=== PATIENT | female | born 1985 ===

== ENCOUNTER 2019-01-09 14:13 | Emergency (ER) | payer BC, MEDICAID ==
[2019-01-09] MEDS ORDERED: Lactated Ringer's 1,000 ML IV ONE (14:24)
[2019-01-09 14:51] LABS: BASO % 0.2 % (0.0-2.0); EOS % 0.3 % (0.0-4.0); LYMPH # 0.8 K/uL (1.0-4.3); LYMPH % 4.8 % (20.0-40.0); MEAN CORPUSCULAR HEMOGLOBIN 26.1 pg (27.0-31.0); MONO # 0.8 K/uL (0.0-0.8); MONO % 4.7 % (0.0-10.0); NEUT # 14.6 K/uL (1.8-7.0); NRBC % 0.1 % (0.0-2.0); PLATELET COUNT 302 K/uL (130-400); RBC 3.77 Mil/uL (3.80-5.20); RED CELL DISTRIBUTION WIDTH 14.3 % (11.5-14.5)
[2019-01-09 14:57] LABS: HEMOGLOBIN 9.8 g/dL (11.0-16.0); MEAN CELL VOLUME 81.5 fL (81.0-99.0); WHITE BLOOD COUNT 16.2 K/uL (4.8-10.8)
[2019-01-09 15:03] LABS: SQUAMOUS EPITHIAL 11 /hpf (0-5); URINE BACTERIA RARE (<OCC); URINE BILIRUBIN NEGATIVE (NEGATIVE); URINE BLOOD 1+ (NEGATIVE); URINE CLARITY Hazy (Clear); URINE COLOR Yellow (YELLOW); URINE GLUCOSE (UA) NORMAL (Normal); URINE LEUKOCYTE ESTERASE TRACE Leu/uL (Negative); URINE PROTEIN NEGATIVE (NEGATIVE); URINE UROBILINOGEN NORMAL mg/dL (0.2-1.0)
[2019-01-09 15:16] LABS: BANDS 5 % (0-2); LYMPHOCYTE 7 % (20-40); MONOCYTE 6 % (0-10); NEUTROPHIL 82 % (50-75); TOTAL CELLS COUNTED 100
[2019-01-09 15:17] LABS: PLATELET ESTIMATE NORMAL (NORMAL)
[2019-01-09 15:33] LABS: ALB/GLOB RATIO 1.1 (1.0-2.1); AMYLASE 86 U/L (30-110); BLOOD UREA NITROGEN 10 mg/dL (7-17); CALCIUM 8.7 mg/dl (8.6-10.4); GFR NON-AFRICAN AMERICAN > 60; LIPASE 52 U/L (23-300)
[2019-01-09 15:36] LABS: ALT/SGPT 10 U/L (9-52); AST/SGOT 36 U/L (14-36)
--- NOTE | 2019-01-09 18:15 | OBHP ---
Datetime: 01/09/2019 15:44 IP Adm Impression: , intrauterine IP Chief Complaint Other: Vomiting, epigastric discomfort IP Admit Plan: Observation/Evaluation; Discharge home Admit Comment, IP Provider: Patient is a 33 year old at 35w4d dated by first trimester US wi th LISA 02/09/19 who presents to labor and delivery for vomiting that started at approximately 4am today . Patient states that she had 5 episodes of vomiting since and last episode was 30 minutes prior to a rrival (1:15pm). Patient also reports having two episodes of loose stools and epigastric discomfort. Epigastric discomfort is cramping in nature, intermittent and non-radiating. Rates the pain a 5-6/10 on pain scale. During the she has been experiencing lower abdominal "stretching" that is co nstant in nature. She denies any changes in her diet, sick contacts or recent travel. She endorses +F M, denies CTX, VB, LOF. Patient is a private of Dr Castillo. Issues: Previous C/S x 2 Advanced Maternal Age OB Hx: 1. 2006 SAB with D+C 2. 2012 PLTCD 2/2 NRFHT at term, male infant, 7lbs, no complications 3. 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 D+C Social History: Denies alcohol, tobacco, drug use; not currently employed Family History: Mother - asthma, lupus age 54; Father - unknown PE: see above A/P: Patient is a 33 year old at 35w4d who presents with intractable vomiting and epigastr ic discomfort. tachycardia initially noted on tracing with irregular contractions. -Not in labor -IV fluid hydration with 1L LR bolus, D5LR bolus to follow -Labs: CBC, CMP, UA, lipase, rapid influenza -Zofran as needed for nausea -Will continue to observe -Discussed plan with Dr Rene OB addendum: Labs reviewed. States that she is feeling better at this time. Contractions have spac ed out and tachycardia resolved. Patient advised to increase PO hydration. Patient also instruc lexie to eat foods rich in iron for anemia. Patient to call Dr Castillo tomorrow morning for a follow up a ppointment within the next few days. labor precautions given. All questions and concerns were addressed. Bhavna Wright DO PGY-2 Attending Note: patient seen, examined and evaluated by me with the Resident. I agree with the abo ve as documented. - Dr. Castillo was made aware FHR - Baseline A Provider: 165 Contraction Comments Provider: irregular Comments, ACOG Physical Exam: Vitals signs stable Gen: AAOX3 Abd: Soft, gravid, no lower abdominal, suprapubic, epigastric tenderness on palpation, fundal heig ht 33cm Back: No CVA tenderness bilaterally Ext: No clubbing, cyanosis, edema SVE: closed/thick/high/posterior IP Hx Assessment: No records available at this time EGA AdmitDate IP: 35.4 Vital Signs Provider: Reviewed IP Chief Complaint: Other NICHD Variability Prov Fetus A: Moderate 6-25bpm NICHD Accel Fetus A IP Provider: [id number] NICHD Decel Fetus A IP Provider: None Dilatation, Provider: closed Effacement, Provider: thick Station, Provider: high
[2019-01-09 21:16] VITALS: BP 104/79; PULSE 112; RESP 20; TEMP 100
== END 2019-01-09 17:15 | disposition home or self-care (01) ==
LOC: C.EROB 14:13
DX: O21.9 Vomiting of pregnancy, unspecified (principal); Z3A.35 35 weeks gestation of pregnancy; O26.893 Other specified pregnancy related conditions, third trimester; R10.13 Epigastric pain
CPT/HCPCS: 80053; 81001; 82150; 83690; 85025; 87804; 96374; 99284; J2405; J7120

== ENCOUNTER 2019-01-26 09:00 | Inpatient (IN) | payer MEDICAID ==
[2019-01-26 09:39] VITALS: BMI 31.7
[2019-01-26] MEDS ORDERED: Lactated Ringer's 1,000 ML IV ONE ×2 (09:39→13:10)
[2019-01-26] MEDS ORDERED: cefOXitin IV 2 gm in Dextrose 2 GM/50 ML BAG IVPB ONE (09:53)
[2019-01-26] MEDS ORDERED: Sodium Citrate/Citric Acid 15 ml Sol PO ONE (09:53)
[2019-01-26 09:57] LABS: BASO % 0.3 % (0.0-2.0); EOS # 0.1 K/uL (0.0-0.7); EOS % 0.6 % (0.0-4.0); LYMPH # 2.2 K/uL (1.0-4.3); LYMPH % 19.4 % (20.0-40.0); MEAN CELL VOLUME 80.6 fL (81.0-99.0); MEAN CORPUSCULAR HEMOGLOBIN 26.6 pg (27.0-31.0); MEAN PLATELET VOLUME 8.5 fL (7.2-11.7); MONO # 0.8 K/uL (0.0-0.8); MONO % 6.8 % (0.0-10.0); NEUT # 8.3 K/uL (1.8-7.0); NEUT % 72.9 % (50.0-75.0); RBC 3.4 Mil/uL (3.80-5.20); RED CELL DISTRIBUTION WIDTH 15.9 % (11.5-14.5); WHITE BLOOD COUNT 11.4 K/uL (4.8-10.8)
[2019-01-26 09:58] LABS: SQUAMOUS EPITHIAL 45 /hpf (0-5); URINE BACTERIA RARE (<OCC); URINE BILIRUBIN NEGATIVE (NEGATIVE); URINE BLOOD 1+ (NEGATIVE); URINE CLARITY Hazy (Clear); URINE COLOR Yellow (YELLOW); URINE GLUCOSE (UA) NORMAL (Normal); URINE LEUKOCYTE ESTERASE TRACE Leu/uL (Negative); URINE PROTEIN NEGATIVE (NEGATIVE)
[2019-01-26] MEDS ORDERED: Oxytocin 20 units in LR 2,000 ML IV ONE (09:59)
[2019-01-26] MEDS ORDERED: Oxytocin 10 Units/ml Inj ONE (10:00)
[2019-01-26 10:04] LABS: ALB/GLOB RATIO 1.4 (1.0-2.1); ALBUMIN 4.4 g/dL (3.5-5.0); ALT/SGPT 8 U/L (9-52); AST/SGOT 20 U/L (14-36); BLOOD UREA NITROGEN 11 mg/dL (7-17); CALCIUM 9.1 mg/dl (8.6-10.4); GFR NON-AFRICAN AMERICAN > 60
--- NOTE | 2019-01-26 11:12 | OBADHP ---
Datetime: 01/26/2019 09:33 Admit Comment, IP Provider: Patient is a 33 year old at 38w0d dated by first trimester US wh o presents to labor and delivery with c/o of contractions and was found to have cx's every 2-4 mins a nd a cervic at 1-2 cms, 60% and -2 station. Pt has a Hx of previous C/S x 2 and sill admit for repeat c/s with TL and per Dr. Hendrix. Patient states the baby has been moving a lot. She states raymundo t there were no complications with this . She denies having any vaginal bleeding/discharge, fevers, chills, shortness of breath, chest pain, abdominal pain, nausea, vomiting, diarrhea, hematuri a, or dysuria. OB Hx: 1. 2006 SAB with D+C 2. 2012 PLTCD 2/2 NRFHT at term, male infant, 7lbs, no complications 3. 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 D+C Social History: Denies alcohol, tobacco, drug use; not currently employed Family History: Mother - asthma, lupus age 54; Father - unknown PE: see above A/P: Patient is a 33 year old at 38w0d who is admitted for a repeat and tubal l igation with Dr. Hendrix today secondary to early labor with cervical change. Patient is havin g contractions and positive movements. - IVF: LR bolus - Cefoxicitin 2g IV - CBC, CMP, RPR, HIV, Type and screen, UA - Keep patient NPO Patient was seen, examined, and plan discussed with attending present, Dr. Flroes. Harinder Bazan, PGY-1 Pt seen and examined with Dr. Pizano and all of his findings and POC were fully reviewed and agree d with. Extremities - PN: Normal Abdomen - PN: Normal Back - PN: Not Done Breast - PN: Not Done Lungs - PN: Normal Heart - PN: Normal Thyroid - PN: Not Done Neurologic - PN: Normal HEENT - PN: Normal General - PN: Normal FHR - Baseline A Provider: 140 Membranes, Provider: Intact Contraction Comments Provider: 2-4 mins Comments, ACOG Physical Exam: Vitals signs stable Gen: AAOX3 Abd: Soft, gravid, no lower abdominal, suprapubic, epigastric tenderness on palpation Ext: No clubbing, cyanosis, edema Vital Signs Provider: Reviewed; Within Normal Limits IP Chief Complaint: Uterine contractions NICHD Variability Prov Fetus A: Moderate 6-25bpm NICHD Accel Fetus A IP Provider: [id number] FHR Category Provider Fetus A: Category I NICHD Decel Fetus A IP Provider: None Dilatation, Provider: 1-2 Effacement, Provider: 60 Station, Provider: -2 EGA AdmitDate IP: 38.0 IP Adm Impression: Term, intrauterine ; Intact Membranes IP Admit Plan: Admit to unit; Initiate Section protocol Datetime: 01/09/2019 15:44 IP Chief Complaint Other: Vomiting, epigastric discomfort IP Hx Assessment: No records available at this time
[2019-01-26] MEDS ORDERED: Morphine 1 mg/ml preservative-free Inj(Duramorph) ONE (11:43)
[2019-01-26] MEDS ORDERED: Phenylephrine 10 mg/ml Inj ONE (13:03)
[2019-01-26] MEDS ORDERED: cefOXitin IV 2 gm in Dextrose 2 GM/50 ML BAG IVPB SCH (14:00)
[2019-01-26] MEDS: cefOXitin IV 2 gm in Dextrose 2 GM/50 ML BAG IVPB SCH (18:17)
[2019-01-26] MEDS: Simethicone 80 mg Chewtab PO SCH ×2 (18:18→21:40)
[2019-01-26] MEDS: Oxycodone/Acetaminophen 5/325 mg Tab PO PRN (20:39)
--- NOTE | 2019-01-26 21:00 | OP ---
PROCEDURE DATE: 01/26/2019 PREOPERATIVE DIAGNOSIS: Intrauterine at 38 weeks, previous section x2, in labor, desires sterilization. POSTOPERATIVE DIAGNOSIS: Intrauterine at 38 weeks, previous section x2, in labor, desires sterilization. PROCEDURE: Lower segment section, bilateral salpingectomy. SURGEON: Brenda Hendrix MD FORESTRY TECHNICAL OFFICER: Juan Diego Sampson MD TYPE OF ANESTHESIA: Spinal. FINDINGS: A live female , Apgars 9 at 1 minute and 9 at 5 minutes with normal tubes and ovaries. COMPLICATIONS: Nil. INDICATIONS FOR THE PROCEDURE: After the risks, benefits, and alternatives of the planned procedures including but not limited to infection, hemorrhage, deep vein thrombosis, atelectasis, pneumonia, pulmonary embolism, damage to the bladder, damage to the ureter, renal insufficiency, renal failure, wound infection, wound dehiscence, incisional hernia, keloid formation, damage to large and small intestines, damage to inferior vena cava and aorta requiring extensive repair, anesthesia complications, electrolyte imbalance, possibility of , fluid overload, cerebral edema, embolism, and other complications were discussed but are not listed above have been explained to the patient and all her questions answered, informed consent was obtained. DESCRIPTION OF PROCEDURE: The patient was taken to the operating room in a stable condition and under a suitable level of spinal analgesia, she was prepped and draped in a sterile fashion after having been placed in a supine position. Risks of tubal ligation including failure of tubal ligation and ectopic were also discussed with the patient. The abdomen was entered through a Pfannenstiel type incision, carried through the subcutaneous tissues to the fascia. Fascia was opened transversely and dissected off the rectus abdominis musculature. The rectus abdominis musculature was then in the midline to remove the parietal peritoneum which was entered sharply and incised superiorly and inferiorly. The bladder peritoneum was incised in a curvilinear fashion and dissected off the lower uterine segment. The lower uterine segment was then entered through a curvilinear incision. Surgeon's fingers were inserted into the lower uterine segment to grasp the 's head which was lying in a right occipital anterior position. The head was easily delivered, nose and mouth were suctioned free of amniotic fluid and the remainder of the was delivered without any difficulty. Cord was doubly clamped and cut and the baby was handed over to the pediatricians who were in attendance. Cord blood was collected with Pitocin running. Placenta was manually removed. The endometrium was then cleaned free of remaining membranes and clots. The uterine incision was then closed in layers with the first layer being a running interlocking layer using #1 chromic and the second layer being used to imbricate the first layer. Hemostasis was good. Bladder peritoneum was then reapproximated using running suture of 2-0 chromic. Attention was then turned to the tubal ligation. Using LigaSure, the right and left fallopian tubes were both resected starting at the cornua resecting the entire mesosalpinx on both the right and left side with good hemostasis. Peritoneal cavity was then irrigated using copious amounts of saline. The saline was evacuated. The abdomen was then closed in layers with 0 chromic to the parietal peritoneum. Rectal muscles were reapproximated using interrupted sutures of 0 chromic. Fascia was reapproximated using two separate running sutures of 0 Vicryl to meet in the midline. Subcutaneous tissues were reapproximated using interrupted sutures of 0 plain and the initial skin incision was reapproximated using 4-0 Vicryl in a subcuticular fashion. Estimated blood loss for the procedure was 250 mL. Pad, needle, and instrument counts were correct x2. There were no complications. Brenda Hendrix MD
--- NOTE | 2019-01-26 22:58 | HP ---
HISTORY OF PRESENT ILLNESS: The patient is a 33-year-old female with a due date of 02/09/2019, is 38 weeks 5 days, complaining of contractions since 1 a.m. The patient has had previous section x2. The patient also desires sterilization. The patient is 4, para 2. Her course has been essentially unremarkable. CURRENT MEDICATIONS: Vitafol Ultra. PAST OBSTETRICAL HISTORY: Significant for section x2 with spontaneous in 2006. PHYSICAL EXAMINATION: VITAL SIGNS: Her blood pressure is 110/70, pulse is 72, respiratory rate is 20, and temperature is 98.8. HEENT: Head, ears, nose and throat examination is within normal. CHEST: Clear. HEART: Cardiac exam reveals normal heart sounds without any murmurs. LUNGS: Clear. BREASTS: Reveal no masses. ABDOMEN: Symphyseal fundal height is 38 cm, longitudinal lie vertex. heart tones are normal. PELVIC: Cervix is 2 cm, 50% effaced, -2 station vertex. ADMITTING DIAGNOSIS: Intrauterine at 38 weeks, in labor and desires sterilization. PLAN: The plan is to perform a lower segment section, bilateral tubal ligation. Prior to being scheduled for the surgical procedure, the patient underwent an informed consent. Discussion and education session with me in the hospital lasted for approximately 1 hour during which time I explained to her in understandable terms the following; the nature and extent of the disease process and the nature and extent of the contemplated operation. I also explained to her the risks and potential complications of the operative procedure to include but not limited to infection, hemorrhage, deep vein thrombosis, atelectasis, pneumonia, pulmonary embolism, damage to the bladder, damage to the ureter, renal insufficiency, renal failure, wound infection, wound dehiscence, incisional hernia, keloid formation, damage to the large and small intestine, damage to inferior vena cava and the aorta requiring extensive repair, anesthesia complications, electrolyte imbalance, possibility of , fluid overload, cerebral edema, embolism, and other complications that were discussed, but are not listed above. I also discussed with the patient the anticipated benefits and results of the surgery including a conservative estimate of the successful outcome. I discussed with the patient where the operation would not accomplish. I informed the patient of the possibility of an unanticipated pathology requiring a more extensive procedure including failure rates of sterilization and ectopic pregnancies. All the questions from the patient were encouraged, welcomed, and answered to her satisfaction. Brenda Hendrix MD
[2019-01-27] MEDS: cefOXitin IV 2 gm in Dextrose 2 GM/50 ML BAG IVPB SCH ×2 (01:28→09:11)
[2019-01-27 07:37] LABS: HEMOGLOBIN 9.5 g/dL (11.0-16.0); MEAN CELL VOLUME 81.1 fL (81.0-99.0); MEAN CORPUSCULAR HEMOGLOBIN 26.7 pg (27.0-31.0); MEAN PLATELET VOLUME 8.5 fL (7.2-11.7); RBC 3.54 Mil/uL (3.80-5.20); RED CELL DISTRIBUTION WIDTH 16.3 % (11.5-14.5); WHITE BLOOD COUNT 15.1 K/uL (4.8-10.8)
[2019-01-27] MEDS: Simethicone 80 mg Chewtab PO SCH ×5 (09:00→21:33)
[2019-01-27] MEDS: Enoxaparin 40 mg Syringe SC SCH (09:13)
[2019-01-27] MEDS: Prenatal Multivit/Folic Acid/Iron Tab PO SCH (09:15)
--- NOTE | 2019-01-27 17:47 | OBPPN ---
Datetime: 01/27/2019 13:00 PP Pain Prov: Within normal limits PP Nausea Prov: Denies PP Flatus Prov: Yes PP BM Prov: No PP Breasts Prov: Not Done PP Heart Prov: Normal PP Lungs Prov: Normal PP Abdomen/Uterus Prov: Normal PP Lochia Prov: Normal PP Vulva/Perineum Prov: Normal PP CVA Tenderness Prov: Normal PP Extremities Prov: Normal PP C/S Incision Prov: Normal PP Progress Prov: Not Applicable PP Comments Phys Exam Prov: Fundus firm and non-tender Incision clean and dry PP Impression Prov: Normal progression PP Plan Prov: Continue present management PP Progress Note Prov: Pt seen and examined per Dr. Castillo'a request POD # 1 S/P repeat C/S Stable and Satisfactory condition and recovery Bottlefeeding only and decline despite counseling done Advised to increase po water intake and activity Advance care IP PP Procedures: None Vital Signs Provider PP: Reviewed
[2019-01-27] MEDS: Oxycodone/Acetaminophen 5/325 mg Tab PO PRN (20:39)
[2019-01-28] MEDS: Oxycodone/Acetaminophen 5/325 mg Tab PO PRN ×3 (07:08→21:24)
--- NOTE | 2019-01-28 08:58 | OBPPN ---
Datetime: 01/28/2019 07:56 PP Pain Prov: Within normal limits PP Nausea Prov: Denies PP Flatus Prov: No PP BM Prov: No PP C/S Incision Prov: Normal PP Progress Prov: Normal PP Comments Phys Exam Prov: Incision clean, dry and intact PP Impression Prov: Normal progression PP Plan Prov: Continue present management PP Progress Note Prov: Patient seen and examined at bedside and per Dr. Castillo's request. Per nursing no acute events overnight. Patient is doing well, pain is controlled. Lochia is mild. She ambulating and tolerating diet. She denies passing flatus or having a bowel movement. Urinating without difficu lty. Breast feeding. Denies headaches, dizziness, cp, palpitations, sob, urinary symptoms. VS: 122/76 91 97.9 Gen: NAD, AAOX3 Abd: Soft, distended, +fundus firm, incision c/d/i with suture Ext: No calf tenderness Labs: 11.0>9.0/27.4<300 15.1>9.5/28.7<339 A positive Rubella immune A/P: Patient is a 33 year old at 38w0d s/p RLTCD with BTL POD#2 -Stable, afebrile -Pain control with motrin and percocet as needed -Encourage ambulation, hydration, ISS use -Encourage -Monitor for return of bowel function Suppository ordered and Nursing with notify if + results -Continue routine care -Anticipate discharge home tomorrow Plan discussed with Dr Mark Wright DO PGY-2 Pt seen and examined with Dr. Wright and agreed with all of her findings and POC. Vital Signs Provider PP: Reviewed; Within Normal Limits
[2019-01-28] MEDS: Prenatal Multivit/Folic Acid/Iron Tab PO SCH (09:07)
[2019-01-28] MEDS: Simethicone 80 mg Chewtab PO SCH ×4 (09:07→21:35)
[2019-01-28] MEDS: Enoxaparin 40 mg Syringe SC SCH (09:08)
[2019-01-28] MEDS ORDERED: Magnesium Citrate Oral SOL (300 ml) PO ONE (09:30)
--- NOTE | 2019-01-29 08:25 | PN ---
DATE: 01/29/2019 SUBJECTIVE: The patient has no complaints. OBJECTIVE: VITAL SIGNS: Stable. She is afebrile. ABDOMEN: Incision is clean and intact. Bowel sounds are normal. EXTREMITIES: Nontender. CHEST: Clear. CARDIAC: Reveals normal heart sounds without any murmurs. There is no signs of DVT. ASSESSMENT AND PLAN: The patient is status post section, bilateral tubal ligation day 2. Plan is to discharge the patient on Keflex 500 mg four times daily x7 days and Tylenol No. 3 one table every 4 hours p.r.n. for a total of 40 tablets. Follow up in the office in one week. Brenda Hendrix MD
[2019-01-29] MEDS ORDERED: Influenza Vaccine 60 mcg/0.5 mL SYR (4YR UP) IM ONE (09:07)
[2019-01-29] MEDS: Enoxaparin 40 mg Syringe SC SCH (10:26)
[2019-01-29] MEDS: Simethicone 80 mg Chewtab PO SCH (10:29)
[2019-01-29] MEDS: Prenatal Multivit/Folic Acid/Iron Tab PO SCH (10:39)
[2019-01-29 21:05] VITALS: BP 125/80; PULSE 91; RESP 20; TEMP 97.9; O2SAT 100
--- NOTE | 2019-01-30 07:18 | DS ---
The patient is a 33-year-old female admitted at 38 weeks 5 days, previous x2 in early labor. The patient also desired sterilization. The patient underwent repeat lower segment section with bilateral salpingectomy. Postoperatively, she remained afebrile. She is discharged home today on postoperative day #3, on Keflex 500 mg q.i.d. x7 days and Tylenol No. 3 one tablet every 4 hourly p.r.n. for a total of 20 tablets. She will be followed up in the office in one week. Brenda Hendrix MD
== END 2019-01-29 12:15 | disposition home or self-care (01) | DRG 371 ==
LOC: UNDOADMIN 09:00 → C.4D 09:00 → C.EROB 09:00 → C.4D 09:20 → EDSTATUS 10:47 → C.4M 15:00
PROVIDERS: ADMIT Obstetrics & Gynecology Reproductive Endocrinology; ATTEND Obstetrics & Gynecology Reproductive Endocrinology
PROC: 10D00Z1 Extraction of Products of Conception, Low, Open Approach (ICD-10-PCS; principal; 2019-01-26)
PROC: 0UB70ZZ Excision of Bilateral Fallopian Tubes, Open Approach (ICD-10-PCS; 2019-01-26)
DX: O34.211 Maternal care for low transverse scar from previous cesarean delivery (principal); O75.82 Onset (spontaneous) of labor after 37 completed weeks of gestation but before 39 completed weeks gestation, with delivery by (planned) cesarean section; Z30.2 Encounter for sterilization; Z3A.38 38 weeks gestation of pregnancy; Z37.0 Single live birth